=== PATIENT | female | born 1985 | race Caucasian/White ===

== ENCOUNTER 2017-05-07 18:54 | Emergency (ER) | END 2017-05-07 21:44 | disposition home or self-care (01) | DX: R20.0 Anesthesia of skin (principal); R07.9 Chest pain, unspecified; R40.2142 Coma scale, eyes open, spontaneous, at arrival to emergency department; R40.2252 Coma scale, best verbal response, oriented, at arrival to emergency department; R40.2362 Coma scale, best motor response, obeys commands, at arrival to emergency department | CPT/HCPCS: 70450; 80053; 85025; 85610; 85730; 96372; J2060; Z7502; Z7610 ==